=== PATIENT | male | born 1945 | race Caucasian/White ===

== ENCOUNTER 2024-07-29 22:22 | Emergency (ER) | payer OTHER, MEDICARE, BC ==
[2024-07-29] MEDS: methylPREDNISolone Sodium Succinate 125 MG/2 ML SDV IVPUSH ONE (23:22)
[2024-07-29] MEDS: diphenhydrAMINE 50 MG/ML SDV IVPUSH ONE (23:22)
[2024-07-29] MEDS: Famotidine 20 MG/2 ML SDV IVPUSH ONE (23:22)
[2024-07-29] MEDS: Sodium Chloride 0.9% 10 ML Syringe FLUSH PRN (23:23)
== END 2024-07-30 00:14 | disposition home or self-care (01) ==
LOC: JP.ED 22:22
DX: T78.40XA Allergy, unspecified, initial encounter (principal)
CPT/HCPCS: 96374; 96375; 99283; J1200; J2919